=== PATIENT | female | born 2000 | race Hispanic/Latino ===

== ENCOUNTER 2020-05-15 14:00 | Emergency (ER) | payer OTHER, SELFPAY ==
[2020-05-15 14:54] LABS: #Eosinphils 0.1 thou/uL (0.0-0.7); #Lymphocytes 1.1 thou/uL (1.20-3.40); #Monocytes 0.5 thou/uL (0.11-0.59); #Neutrophils 9.6 thou/uL (1.40-6.50); %Basophils 0.2 % (0.0-1.0); %Eosinophils 0.5 % (0.0-10.0); %Lymphocytes 9.5 % (28.0-48.0); %Monocytes 4.8 % (0.0-4.0); %Neutrophils 85.1 % (31.0-61.0); Hemoglobin 14.3 g/dL (12.0-16.0); Mean Corpuscular HGB CONC 34.1 g/dL (32.0-36.0); Mean Corpuscular Hemoglobin 32.9 pg (25.0-35.0); Mean Corpuscular Volume 96.4 fL (78.0-98.0); Mean Platelet Volume 9.9 fL (7.4-10.4); Platelet Count 178 thou/uL (130-400); RBC Distribution Width 10.9 % (11.5-14.5); Red Blood Cell (RBC) Count 4.35 mill/uL (4.00-5.20); White Blood Cell (WBC) Count 11.2 thou/uL (4.8-10.8)
[2020-05-15 15:19] LABS: Bilirubin Negative (Negative); Blood, Urine Trace (Negative); Clarity Clear (Clear); Glucose, Urine (Dipstick) Normal (Negative); Ketone, Urine Trace mg/dL (Negative); Leukocyte 25 Leu/uL (Negative); Nitrite Negative (Negative); Protein, Urine (Dipstick) 30 mg/dL (Neg-Trace); RBC/HPF 0-3 HPF (0-3); Specific Gravity, Urine 1.036 (1.002-1.036); Urobilinogen Normal mg/dL (Less than 2)
[2020-05-15 15:20] LABS: Bacteria/HPF 1+ HPF (None Seen)
--- NOTE | 2020-05-15 16:49 | ULT ---
OB ULTRASOUND: History: Vaginal bleeding off and on for a few days. FINDINGS: Real-time imaging of the pelvis shows a viable intrauterine . Gestational sac is in normal p osition. A yolk sac and a tiny pole is identified. [place] to rump measurements are 2.9 mm, which corresponds to a 5 week 6 day gestation. heart rate of 111 beats/minute was obtained. No subch orionic bleed noted. The right and left adnexa are normal in appearance. COLOR DOPPLER EVALUATION WITH SPECTRAL ANALYSIS: Normal flow is show to the adnexa. IMPRESSION: Viable intrauterine , [id number] length measurements of 5 weeks 6 days and gestational sa c measures of 6 weeks 3 days, with estimated age by ultrasound is 6 weeks 1 day. Estimated date of delivery is 01-07-2021. POS: [facility]
== END 2020-05-15 17:33 | disposition home or self-care (01) ==
LOC: ERS 14:00
DX: O20.0 Threatened abortion (principal); O99.891 Other specified diseases and conditions complicating pregnancy; R82.71 Bacteriuria; Z3A.01 Less than 8 weeks gestation of pregnancy
CPT/HCPCS: 36415; 76856; 81003; 81015; 84702; 85025; 86900; 86901; 87077; 87086